=== PATIENT | female | born 1955 | race Two or more races ===

== ENCOUNTER 2018-03-20 08:00 | Outpatient (CLI) | payer MEDICARE, OTHER ==
[2018-03-20 15:59] LABS: GLUCOSE, URINE (UA) NEGATIVE (NEGATIVE); KETONES,URINE (UA) TRACE mg/dL (NEGATIVE); LEUKOCYTE ESTERASE, URINE NEGATIVE (NEGATIVE); NITRITE,URINE NEGATIVE (NEGATIVE); OCCULT BLOOD,URINE NEGATIVE (NEGATIVE); PROTEIN,URINE NEGATIVE (NEGATIVE); UROBILINOGEN,URINE 1 (NORMAL) E.U./dL (NORMAL)
[2018-03-20 16:06] LABS: BILIRUBIN,URINE NEGATIVE (NEGATIVE); CLARITY,URINE CLEAR (CLEAR); ICTOTEST,URINE NEGATIVE
== END 2018-03-20 08:01 ==
LOC: LAB.R 08:00
PROVIDERS: ATTEND Radiology Radiation Oncology
DX: C18.8 Malignant neoplasm of overlapping sites of colon (principal); C78.7 Secondary malignant neoplasm of liver and intrahepatic bile duct; R30.0 Dysuria
CPT/HCPCS: 81001; 81003; 87086

== ENCOUNTER 2018-05-26 10:31 | Inpatient (IN) | payer MEDICARE, BC ==
--- NOTE | 2018-05-26 12:12 | ED Physician Documentation ---
PD HPI NVD - Stated complaint Stated Complaint: WEAKNESS/NAUSEA/DIARHEA - Chief complaint Chief Complaint: Abd Pain - History obtained from History obtained from: Patient - History of Present Illness Timing - onset: How many days ago (3-4) Timing - duration: Days (3-4) Timing - details: Abrupt onset, Still present Associated symptoms: Abdominal pain (intermittent crampy), Loss of appetite. No: Fever, Hematemesis, Melena, Near syncope / syncope (very lightheaded), Dysuria Contributing factors: Other (chemotheraphy a week ago). No: Sick contact, Bad food, Recent antibiotics Similar symptoms before: Has not had sx before (had not had this much effect from prior chemos; this was a new one a week ago.) Recently seen: Not recently seen Review of Systems Ten Systems: 10 systems reviewed and negative Constitutional: denies: Fever, Chills, Myalgias Nose: denies: Rhinorrhea / runny nose, Congestion Throat: denies: Sore throat Cardiac: denies: Chest pain / pressure Respiratory: reports: Dyspnea. denies: Cough GI: reports: Nausea, Vomiting, Diarrhea. denies: Abdominal Pain : denies: Dysuria, Frequency Neurologic: reports: Generalized weakness, Near syncope. 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 : None HEENT: None Psych: None Musculoskeletal: None Derm: None - Past Surgical History Past Surgical History: Yes General: Bowel surgery, Liver surgery, Other Ortho: Rotator cuff repair HEENT: Tonsil/Adenoidectomy - Present Medications Home Medications: Ambulatory Orders Medication Instructions Recorded Confirmed Lidocaine/Prilocain 2.5% Cream 1 inch TOP DAILY PRN #1 tube 11/11/17 05/26/18 [Emla 2.5% Cream] Potassium Chloride [K-Dur] 20 meq PO 0800 #30 tablet 11/11/17 05/26/18 Hydrocodone/Acetaminophen 0.5 tab PO BID PRN 05/26/18 05/26/18 [Hydrocodone-Acetamin 10-325 mg] Ibuprofen 200 mg PO DAILY PRN 05/26/18 05/26/18 LORazepam [Lorazepam] 0.5 mg PO DAILY PRN 05/26/18 05/26/18 Loperamide [Imodium] 2 mg PO PRN PRN MDD 16MG 05/26/18 05/26/18 Ondansetron [Ondansetron Odt] 8 mg PO DAILY PRN 05/26/18 05/26/18 - Allergies Allergies/Adverse Reactions: Allergies Allergy/AdvReac Type Severity Reaction Status Date / Time No Known Drug Allergies Allergy Verified 05/26/18 12:15 - Social History Does the pt smoke?: No Smoking Status: Never smoker Does the pt drink ETOH?: No Does the pt have substance abuse?: No - Immunizations Immunizations are current?: No - POLST Patient has POLST: No PD ED PE NORMAL - Vitals Vital signs reviewed: Yes (hypotensive) - General General: Alert and oriented X 3, Well developed/nourished - HEENT HEENT: Pharynx benign. No: Moist mucous membranes - Neck Neck: Supple, no meningeal sign, No adenopathy - Cardiac Cardiac: RRR, No murmur - Respiratory Respiratory: Clear bilaterally - Abdomen Abdomen: Normal bowel sounds, Soft, Non tender, Non distended, No organomegaly - Female Female : Deferred - Rectal Rectal: Other (soft stool in vault, dark brown, tests lightly guiac positive. ) - Back Back: No CVA TTP - Derm Derm: Normal color, Warm and dry - Neuro Neuro: Alert and oriented X 3, No motor deficit, Normal speech Results - Vitals Vitals: Oxygen O2 Source Room air - Labs Labs: Laboratory Tests 05/26/18 05/26/18 05/26/18 14:20 14:20 15:25 WBC 0.9 L* RBC 2.40 L Hgb 7.0 L* Hct 21.3 L MCV 89.0 MCH 29.2 MCHC 32.8 RDW 19.7 H Plt Count 25 L* MPV 7.6 L Neut # (Auto) Not Reportable Lymph # (Auto) Not Reportable [place] # (Auto) Not Reportable Eos # (Auto) Not Reportable Baso # (Auto) Not Reportable Absolute Nucleated RBC Not Reportable Total Counted 100 Band Neuts % (Manual) 22 H Abnorm Lymph % (Manual) 3 Metamyelocytes % 4 H Myelocytes % 1 H Nucleated RBC % Not Reportable Neutrophils # (Manual) 0.5 L* Lymphocytes # (Manual) 0.2 L Monocytes # (Manual) 0.1 Eosinophils # (Manual) 0.0 Basophils # (Manual) 0.0 Differential Comment MANUAL DIFFERENTIAL WBC Morphology 1+ TOXIC GRANULATION Platelet Estimate DECREASED (<130,000) Platelet Morphology NORMAL APPEARANCE RBC Morph Micro Appear 1+ MICROCYTOSIS Sodium 137 Potassium 3.6 Chloride 107 Carbon Dioxide 23 Anion Gap 7.0 BUN 22 H Creatinine 0.8 Estimated GFR (MDRD) 72 L Glucose 102 H Calcium 8.5 Magnesium 1.8 Total Bilirubin 1.8 H AST 52 H ALT 15 Alkaline Phosphatase 142 H Total Protein 5.6 L Albumin 2.6 L Globulin 3.0 Albumin/Globulin Ratio 0.9 L Lipase 21 L Blood Type O POSITIVE Antibody Screen NEGATIVE Crossmatch IS Only See Detail 05/26/18 15:25 WBC RBC Hgb Hct MCV MCH MCHC RDW Plt Count MPV Neut # (Auto) Lymph # (Auto) [place] # (Auto) Eos # (Auto) Baso # (Auto) Absolute Nucleated RBC Total Counted Band Neuts % (Manual) Abnorm Lymph % (Manual) Metamyelocytes % Myelocytes % Nucleated RBC % Neutrophils # (Manual) Lymphocytes # (Manual) Monocytes # (Manual) Eosinophils # (Manual) Basophils # (Manual) Differential Comment WBC Morphology Platelet Estimate Platelet Morphology RBC Morph Micro Appear Sodium Potassium Chloride Carbon Dioxide Anion Gap BUN Creatinine Estimated GFR (MDRD) Glucose Calcium Magnesium Total Bilirubin AST ALT Alkaline Phosphatase Total Protein Albumin Globulin Albumin/Globulin Ratio Lipase Blood Type Cancelled Antibody Screen Cancelled Crossmatch IS Only See Detail PD MEDICAL DECISION MAKING - ED course Complexity details: reviewed results, re-evaluated patient (feeling improved with IV fluids, but still nauseated. Has low Hgb and will need transfusion, lc with ongoing bloody diarrhea and marrow suppression from chemo. Still hypotensive. ), considered differential (She has general weakness. This persists even despite IV fluids. Her blood pressure still mildly hypotensive. She is guaiac positive on rectal exam with the diarrhea. Presume this is just hemorrhagic colitis from the chemotherapy. We will obtain stool for culture and C. difficile. She is anemic enough to need transfusion. I think she is still ill enough to require ongoing care and I talked with the hospitalist regarding hospitalization.), d/w patient Departure - Departure Disposition: [facility] DC/Xfer Clinical Impression: Nausea vomiting and diarrhea, Pancytopenia due to chemotherapy, Dehydration, Bloody diarrhea Hypotension Qualifiers: Hypotension type: hypotension due to hypovolemia Qualified Code(s): I95.89 - Other hypotension Anemia Qualifiers: Anemia type: unspecified type Qualified Code(s): D64.9 - Anemia, unspecified Condition: Stable Record reviewed to determine appropriate education?: Yes Discharge Date/Time: 05/26/18 18:15
[2018-05-26] MEDS ORDERED: SODIUM CHLORIDE 0.9% 1,000 ML IV ONE ×2 (12:31→12:32)
[2018-05-26] MEDS ORDERED: DEXAMETHASONE 10 MG/ML VIAL PO STA (12:32)
[2018-05-26] MEDS ORDERED: metroNIDAZOLE 500 MG/100 ML 500 MG/100 ML BAG IV ONE (12:32)
[2018-05-26] MEDS ORDERED: ONDANSETRON 4 MG/2 ML VIAL IVP STA (12:32)
[2018-05-26] MEDS ORDERED: DIPHENOX/ATROPINE 2.5/0.025 MG TABLET PO STA (12:32)
[2018-05-26 14:33] LABS: BASOPHILS % (AUTO) 0.2 %; EOSINOPHILS % (AUTO) 2.4 %; LYMPHOCYTES % (AUTO) 16.7 %; MEAN CORPUSCULAR HEMOGLOBIN 29.2 pg (27.0-31.0); MEAN CORPUSCULAR HGB CONC 32.8 g/dL (32.0-36.0); MEAN PLATELET VOLUME 7.6 fL (7.9-10.8); MONOCYTES % (AUTO) 17.2 %; NEUTROPHILS % (AUTO) 63.5 %; RED CELL DISTRIBUTION WIDTH 19.7 % (12.0-15.0)
[2018-05-26 14:38] LABS: WHITE BLOOD COUNT 0.9 x10^3/uL (4.8-10.8)
[2018-05-26 14:39] LABS: PLT - PLATELET COUNT 25 10^3/uL (130-450)
[2018-05-26 14:42] LABS: ALBUMIN 2.6 g/dL (3.2-5.5); ALBUMIN/GLOBULIN RATIO 0.9 (1.0-2.2); BILIRUBIN,TOTAL 1.8 mg/dL (0.2-1.0); CALCIUM 8.5 mg/dL (8.5-10.3); CREATININE 0.8 mg/dL (0.4-1.0); MAGNESIUM 1.8 mg/dL (1.7-2.8); TOTAL PROTEIN 5.6 g/dL (6.7-8.2)
[2018-05-26 14:58] LABS: NEUTROPHILS % (MANUAL) 38 %
[2018-05-26 14:59] LABS: ABNORMAL LYMPHS % (MANUAL) 3 %; BAND NEUTROPHILS % (MANUAL) 22 %; BASOPHILS % (MANUAL) 1 %; LYMPHOCYTES # (MANUAL) 0.2 10^3/uL (1.5-3.5); LYMPHOCYTES % (MANUAL) 23 %; METAMYELOCYTES % (MANUAL) 4 %; MONOCYTES # (MANUAL) 0.1 10^3/uL (0.0-1.0); MYELOCYTES % (MANUAL) 1 %; NEUTROPHILS # (MANUAL) 0.5 10^3/uL (1.5-6.6)
[2018-05-26 15:01] LABS: DIFFERENTIAL COMMENT MANUAL DIFFERENTIAL; PLATELET ESTIMATE, MANUAL DECREASED (<130,000) (NORMAL); PLATELET MORPHOLOGY NORMAL APPEARANCE (NORMAL)
[2018-05-26] MEDS ORDERED: fentaNYL 100 MCG/2 ML VIAL IVP STA (15:15)
[2018-05-26] MEDS ORDERED: TEMAZEPAM 15 MG CAPSULE PO PRN (17:08)
--- NOTE | 2018-05-26 17:12 | HISTORY & PHYSICAL EXAMINATION ---
Chief Complaint - Chief Complaint Chief Complaint: N/V/D History of Present Illness - Admitted From Admitted From:: ED - History Obtained From Records Reviewed: yes History obtained from: chart review, patient Exam Limitations: none - History of Present Illness HPI Comment/Other: Darcy Mccall is a 62-year old female with a past medical history of hypertension, colorectal cancer since 09/2015, diverting colostomy for obstruction, ileostomy take down in 03/2016, embolization of right hepatic lobe, failed liver resection due to progression of disease, and iron deficiency anemia. The patient presented to the ED with a primary complaint of nausea, vomiting and diarrhea that started last May 23. She states that she has been getting bloody noses, has been having blurred vision and is currently being seen by our [facility] [place]ology clinic with her last appointment on 05/19/[address] Gupta. Today the triggering event that she called EMS for was that she could no longer bear weight on her legs due to profound weakness. Labs show pancytopenia with a WBC count of 0.9 and an ANC of 0.5. Her H/H was very low at 7/21.3 and a low platelet count of 25. On my exam she is conversational and set on going home by "noon tomorrow". She complains of loss of appetite, chills, nose bleeds, weakness, dizziness, shortness of breath with ambulation, sleeping all of the time, an inability to ambulate, and incontinence. She denies chest pain, chest pressure, rashes, hallucinations, confusion, falls, syncope, a productive cough, fevers, or night sweats. She states that she was previously a DNR, but after speaking with her , they decided that a FULL code is their wish at this time. Her Kristine was not present for this exam, but a family friend (female) named Uma giraldo, who agreed with a FULL code status as she was present for the conversation between the patient and her . She will be admitted for PRBCs and evaluation of her symptoms. 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 : reports: Incontinence, Nocturia, Frequency HEENT: reports: Chronic vision loss, Chronic sinusitis, Chronic hearing loss Psych: reports: Depression, Anxiety Musculoskeletal: reports: Osteoarthritis, Osteoporosis Derm: reports: None MRSA Hx?: No - Past Surgical History General: reports: Bowel surgery, Gastric surgery, Liver surgery, EGD, Other (ileostomy, take down, now pelvic mass) Ortho: reports: Rotator cuff repair HEENT: reports: Tonsil/Adenoidectomy - Family & Social History Family History: Mother: , Cancer, Father: , Brother: , Cancer Family History Comment/Other: The patient's father of natural causes, her mother of cancer of unknown type. Her brother of cancer. Living arrangement: At home Living Situation: With spouse/s.o. Social History Notes: The patient worked for the [employer], but has been retired for several years. She lives independently with her , Kristine and has no children. She denies the use of tobacco, alcohol or illicit drugs. She wishes to be a FULL code. - Substance History Use: Uses substance without health or social issues: NONE Abuse: Recurrent use of substance despite neg consequences: NONE Dependence: Experiences withdrawal or developed tolerances: NONE - POLST Patient has POLST: No POLST Status: Full Code Meds/Allgy - Home Medications Home Medications: Ambulatory Orders Medication Instructions Recorded Confirmed Lidocaine/Prilocain 2.5% Cream 1 inch TOP DAILY PRN #1 tube 11/11/17 05/26/18 [Emla 2.5% Cream] Potassium Chloride [K-Dur] 20 meq PO 0800 #30 tablet 11/11/17 05/26/18 Hydrocodone/Acetaminophen 0.5 tab PO BID PRN 05/26/18 05/26/18 [Hydrocodone-Acetamin 10-325 mg] Ibuprofen 200 mg PO DAILY PRN 05/26/18 05/26/18 LORazepam [Lorazepam] 0.5 mg PO DAILY PRN 05/26/18 05/26/18 Loperamide [Imodium] 2 mg PO PRN PRN MDD 16MG 05/26/18 05/26/18 Ondansetron [Ondansetron Odt] 8 mg PO DAILY PRN 05/26/18 05/26/18 - Allergies Allergies/Adverse Reactions: Allergies Allergy/AdvReac Type Severity Reaction Status Date / Time No Known Drug Allergies Allergy Verified 05/26/18 12:15 Review of Systems - Constitutional Constitutional: reports: Fatigue, Chills, Weakness, Poor appetite - Eyes Eyes: reports: Blurred vision - Ears, Nose & Throat Ears, Nose & Throat: reports: Nosebleeds, Postnasal drainage - Cardiovascular Cariovascular: reports: Lightheadedness, Exertional dyspnea, Decr. exercise tolerance, Orthopnea - Respiratory Respiratory: reports: Orthopnea, SOB at rest, SOB with exertion - Gastrointestinal Gastrointestinal: reports: Diarrhea, Rectal bleeding (due to hemorroids), Nausea, Vomiting, Reflux/heartburn, Poor appetite - Genitourinary Genitourinary: reports: Dysuria, Frequency - Musculoskeletal Musculoskeletal: reports: Muscle aches, Muscle weakness - Integumentary Integumentary: reports: Rash (to face and genitals), Dryness - Neurological Neurological: reports: General weakness, Dizziness, Memory problems, Pre- existing deficit, Abnormal gait, Incoordination - Psychiatric Psychiatric: reports: Depression, Anxiety - All Other Systems All Other Systems: reports: Reviewed and negative Prior Level of Functionality: Ambulatory, but for the past few days has been profoundly weak. Exam - Vital Signs Reviewed Vital Signs: Yes Vital Signs: Vital Signs x48h Temp Pulse Resp BP Pulse Ox 05/26/18 17:09 76 16 92/52 L 05/26/18 15:54 36.8 C 78 18 89/52 L 100 05/26/18 12:10 37.1 C 78 18 99/46 L 99 05/26/18 11:08 36.5 C 87 16 94/63 100 - Physical Exam General Appearance: positive: Alert, Mild distress, Anxious Eyes Bilateral: positive: PERRL ENT: positive: Pharynx nml, Dry mucous membranes Neck: positive: Thyroid nml, No JVD, Trachea midline Respiratory: positive: Chest non-tender, No respiratory distress, Breath sounds nml Cardiovascular: positive: Regular rate & rhythm, No gallop, Systolic murmur Abdomen: positive: Tenderness, Guarding, Abnml bowel sounds Back: positive: Nml inspection Skin: positive: No rash, Warm, Dry, Other (bronze, pale) Extremities: positive: Non-tender, Full ROM, Nml appearance, No pedal edema Neurologic/Psychiatric: positive: Oriented x3, CN's nml (2-12), Motor nml, Sensation nml, Weakness, Slurred/abnml speech (sluggish speech), Depressed mood/affect Reflexes: Bicep (R): 2+, Bicep (L): 2+ Sepsis Event Note (H) - Evaluation Current Stage of Sepsis: Ruled out - Sepsis Criteria Sepsis Criteria: Suspected or Documented, WBC count greater than 12,000 or less than 4000, SBP less than 90 mmHg, Hematologic: platelets < 100,000; INR > 1.5, or a PTT>60 seconds Conclusion/Plan - Problem List (1) Hypotension Conclusion/Plan: The patient states that since Saturday05/23/18, she has not been able to consume food, has been thirsty, has been nauseated, vomiting, and diarrhea. She is found to be very hypotensive on admission with B/Ps at 89/52. She got 2Ls of IV fluids in the ED via her left upper chest port and only improved to 92/52. She remains with intermittent blurred vision, profound fatigue and is also anemic with an H/H of 7/21.3. She is currently under the care of oncology [facility] clinic. Plan: IV fluids, monitor vital signs. Qualifiers: Hypotension type: hypotension due to hypovolemia Qualified Code(s): I95.89 - Other hypotension; E86.1 - Hypovolemia (2) Nausea vomiting and diarrhea Conclusion/Plan: The patient states that she is only thirsty lately and has had uncontrolled N/V/D since last Saturday- 05/23/18. Her friend, Uma is in the room and confirms this. This has consequently caused her to be very weak and she has not been able to take her regular medications. She describes her diarrhea as uncontrolled and frequent. She denies recent antibiotics. Plan: Start SQ octreotide, monitor for worsening, treat with IV fluids. Await C-diff results. (3) Pancytopenia due to chemotherapy Conclusion/Plan: The patient had her most recent chemo treatment in 03/2018 which was an external beam XRT to the pelvic mass for palliative purposes/pain. She is now anemic, with 2 units of PRBC that need to irradiated that are pending. Plan: monitor labs, monitor for bleeding, treat symptoms, IV fluids. Replace platelets if they reach less then 10. (4) Epistaxis, recurrent Conclusion/Plan: The patient states that this has been happening at least daily for the past few weeks. Her platelet level is 25. She is not currently having this on my exam. Plan: Afrin spray for acute bleeding, monitor. (5) Mass of colon Conclusion/Plan: The patient has been diagnosed with stage 4 colon CA since 2016 and had a diverting ostomy, and a take down. On exam, she has a pelvic mass that is centered near her naval. She has chronic abdominal tenderness. She has liver mets. She last saw Dr. Gupta oncolgy on 05/19/18. Plan: Continue to treat acute diagnoses. Alert [facility] clinic of her admission. (6) Metastasis to liver Conclusion/Plan: The patient does not have juandice, but appears bronze, pale in color. She had an external beam XRT for her pelvic mass in 03/2018. She is profoundly malnourished. Plan: Continue to monitor. (7) Anorexia Conclusion/Plan: The patient has not tolerated food and very little water since Saturday05/23/18. This is likely due to her N/V/D that is considered uncontrolled. Plan: Nutritional consult, treat symptoms. Ensure good PO intake prior to discharge. (8) Protein-calorie malnutrition, severe Conclusion/Plan: The patient has evidence of very poor nutrition with having an albumin of 2.6 and a low total protein. She states that she suffers from a poor baseline appetite and now has this illness. She admits to recent weight loss, and has a trend of gradual decline with poor endurance. As per chart review the patient weight 59.5kg in February of 2018 and is now down to 53.9 kg. Plan: Continue to treat symptoms, nutritional consult. Regular diet. (9) Chronic anal fissure Conclusion/Plan: In the ED the patient tested + guiac, which may have been from her chronic anal fissures/hemorrhoids. She has been seen by general surgery for this. She continues to have diarrhea. Plan: Continue to monitor. Await stool testing, 2 units of blood this evening. Continue SQ octreotide for symptom control. - Lab Results Lab results reviewed: Yes Fish Bones: 05/26/18 14:20 05/26/18 14:20 Core Measures - Anticipated LOS I expect patient to be DC'd or transferred within 96 hours.: Yes - DVT/VTE - Prophylaxis VTE/DVT Device ordered at admit?: Yes VTE/DVT Prophylaxis med ordered at admit?: No Not Ordered - Medical Reason: Contraindicated - Stroke - Rehab Assessment Rehab services assessment to be ordered?: Yes - AMI - Statin at Admit Aspirin Prescribed on Admit: No Not Ordered - Medical Reason: Contraindicated
[2018-05-26] MEDS ORDERED: HYDROcod/ACETAM 10 MG/325 MG TABLET PO PRN (19:37)
[2018-05-26] MEDS ORDERED: LORazepam 0.5 MG TABLET PO PRN (19:37)
[2018-05-26] MEDS ORDERED: LIDOCAINE/PRILOCAINE 2.5% CREAM 5 GM TUBE TOP PRN (19:37)
[2018-05-26] MEDS: LOPERAMIDE 2 MG CAPSULE PO PRN (19:59)
[2018-05-26] MEDS ORDERED: NS W/20 MEQ KCL 1,000 ML IV SCH (20:00)
[2018-05-26] MEDS: OCTREOTIDE 100 MCG/ML VIAL SUBQ SCH (22:01)
[2018-05-26] MEDS: NS W/20 MEQ KCL 1,000 ML IV SCH (22:51)
[2018-05-26] MEDS: SODIUM CHLORIDE FLUSH 0.9% 10 ML SYRINGE IVP SCH (23:49)
[2018-05-27] MEDS: MORPHINE 2 MG/ML CARPUJECT IVP PRN ×2 (01:20→19:37)
[2018-05-27] MEDS: LOPERAMIDE 2 MG CAPSULE PO PRN ×5 (01:20→22:49)
[2018-05-27] MEDS: SODIUM CHLORIDE FLUSH 0.9% 10 ML SYRINGE IVP SCH ×3 (01:21→23:48)
[2018-05-27] MEDS: IBUPROFEN 400 MG TABLET PO PRN ×2 (01:31→20:49)
[2018-05-27] MEDS: OCTREOTIDE 100 MCG/ML VIAL SUBQ SCH ×3 (05:32→22:11)
[2018-05-27 05:53] LABS: BASOPHILS % (AUTO) 0.2 %; EOSINOPHILS % (AUTO) 0.2 %; HGB - HEMOGLOBIN 7.4 g/dL (12.0-16.0); LYMPHOCYTES % (AUTO) 17.5 %; MEAN CORPUSCULAR HEMOGLOBIN 29.6 pg (27.0-31.0); MEAN CORPUSCULAR HGB CONC 31.9 g/dL (32.0-36.0); MEAN CORPUSCULAR VOLUME 92.7 fL (81.0-99.0); MEAN PLATELET VOLUME 8.2 fL (7.9-10.8); MONOCYTES % (AUTO) 14.5 %; NEUTROPHILS % (AUTO) 67.6 %; RED CELL DISTRIBUTION WIDTH 18.7 % (12.0-15.0)
[2018-05-27 06:00] LABS: WHITE BLOOD COUNT 0.5 x10^3/uL (4.8-10.8)
[2018-05-27 06:01] LABS: PLT - PLATELET COUNT 19 10^3/uL (130-450)
[2018-05-27 06:04] LABS: ALBUMIN 2.2 g/dL (3.2-5.5); ALBUMIN/GLOBULIN RATIO 0.8 (1.0-2.2); BILIRUBIN,TOTAL 1.9 mg/dL (0.2-1.0); CALCIUM 8.1 mg/dL (8.5-10.3); CREATININE 0.7 mg/dL (0.4-1.0); TOTAL PROTEIN 4.9 g/dL (6.7-8.2)
[2018-05-27 06:19] LABS: ABNORMAL LYMPHS % (MANUAL) 0 %
[2018-05-27] MEDS: PANTOPRAZOLE 40 MG VIAL IVP SCH ×2 (06:24→16:22)
[2018-05-27 06:31] LABS: NEUTROPHILS % (MANUAL) 52 %
[2018-05-27 06:33] LABS: BAND NEUTROPHILS % (MANUAL) 19 %; LYMPHOCYTES # (MANUAL) 0.1 10^3/uL (1.5-3.5); LYMPHOCYTES % (MANUAL) 21 %; NEUTROPHILS # (MANUAL) 0.4 10^3/uL (1.5-6.6)
[2018-05-27 06:34] LABS: PLATELET ESTIMATE, MANUAL DECREASED (<130,000) (NORMAL)
[2018-05-27] MEDS: NS W/20 MEQ KCL 1,000 ML IV SCH (09:02)
[2018-05-27] MEDS ORDERED: SODIUM CHLORIDE 0.9% 500 ML IV ONE (09:50)
[2018-05-27] MEDS: POLYETHYLENE GLYCOL 3350 17 GM PACKET PO SCH (09:54)
[2018-05-27] MEDS ORDERED: FILGRASTIM-SNDZ 300 MCG/0.5 ML SYRINGE SUBQ ONE (10:24)
--- NOTE | 2018-05-27 10:35 | PROVIDER PROGRESS NOTE ---
Subjective - Prog Note Date Prog Note Date: 05/27/18 - Subjective Pt reports feeling: Improved Subjective: pt reports she has been loss of her appetite since last Saturday, today she feels she had some appetite and she begin to eat her breakfast. She denies fever, chill, nose bleeding or other bleeding. I discussed with Lacey RUST, pt's oncologist provider, at [facility] for pt's care plan. Lacey recommends Zarxio for pt's neutropenia, blood transfusion of lower HGB, and closely monitor pt until pt has bleed or Plt continue to drop to 10,000, then transfusion of large bag of Plt. I discussed with pt's and pt for pt's care plan. They want continue to have full code, do not think palliative or hospice care now but will consider if the time comes. Current Medications - Current Medications Current Medications: Active Medications Acetaminophen (Tylenol) 650 mg PO Q4HR PRN PRN Reason: Pain 1 to 4 Hydrocodone Bitart/Acetaminophen ([place] 10 Mg/325 Mg) 0.5 tab PO BID PRN PRN Reason: PAIN Filgrastim (Zarxio) 300 mcg SUBQ ONCE ONE Stop: 05/27/18 10:25 Potassium Chloride/Sodium Chloride (Normal Saline 0.9% W/20 Meq Kcl) 1,000 mls @ 100 mls/hr IV .Q10H [facility] Last Admin: 05/27/18 09:02 Dose: 100 mls/hr Ibuprofen (Motrin) 200 mg PO DAILY PRN PRN Reason: PAIN Last Admin: 05/27/18 01:31 Dose: 200 mg Lidocaine/Prilocaine (Emla 2.5% Cream) 1 applic TOP DAILY PRN PRN Reason: Port Access Loperamide HCl (Imodium) 2 mg PO PRN PRN PRN Reason: LOOSE STOOL Last Admin: 05/27/18 01:20 Dose: 2 mg Lorazepam (Ativan) 0.5 mg PO DAILY PRN PRN Reason: Nausea / Vomiting Morphine Sulfate (Morphine (Carpuject)) 2 mg IVP Q2HR PRN PRN Reason: PAIN Octreotide Acetate (Sandostatin) 50 mcg SUBQ TID [facility] Last Admin: 05/27/18 05:32 Dose: 50 mcg Ondansetron HCl (Zofran Inj) 4 mg IVP Q6HR PRN PRN Reason: Nausea / Vomiting Ondansetron HCl (Zofran Odt) 8 mg PO DAILY PRN PRN Reason: Nausea / Vomiting Pantoprazole Sodium (Protonix) 40 mg IVP BIDAC [facility] Last Admin: 05/27/18 06:24 Dose: 40 mg Polyethylene Glycol (Miralax) 17 gm PO DAILY [facility] Last Admin: 05/27/18 09:54 Dose: Not Given Sodium Chloride (Normal Saline Flush 0.9%) 10 ml IVP PRN PRN PRN Reason: NEEDED PER PROVIDER ORDERS Sodium Chloride (Normal Saline Flush 0.9%) 10 ml IVP 0100,0900,1700 [facility] Last Admin: 05/27/18 01:21 Dose: 10 ml Temazepam (Restoril) 15 mg PO QPM PRN PRN Reason: Insomnia Hydrocodone/Acetaminophen [Hydrocodone-Acetamin 10-325 mg] 0.5 tab PO BID PRN 05/26/18 Ibuprofen 200 mg PO DAILY PRN 05/26/18 LORazepam [Lorazepam] 0.5 mg PO DAILY PRN 05/26/18 Loperamide [Imodium] 2 mg PO PRN PRN MDD 16MG 05/26/18 Ondansetron [Ondansetron Odt] 8 mg PO DAILY PRN 05/26/18 Objective - Vital Signs/Intake & Output Reviewed Vital Signs: Yes Vital Signs: Vital Signs x48h Temp Pulse Resp BP Pulse Ox 05/27/18 07:55 36.4 C L 69 16 94/53 L 97 05/27/18 05:00 36.4 C L 66 16 86/45 L 96 Intake & Output: Intake & Output 05/24/18 05/25/18 05/26/18 05/27/18 23:59 23:59 23:59 23:59 Intake Total 2450 1720 Output Total 650 3 Balance 1800 1717 - Objective General Appearance: positive: No acute distress, Alert. negative: Lethargic Eyes Bilateral: positive: Normal inspection, PERRL, No lid inflammation, Conjunctivae nml ENT: positive: ENT inspection nml, Pharynx nml, No signs of dehydration. negative: Purulent nasal drainage, Pharyngeal erythema, Oral lesions Neck: positive: Nml inspection, Thyroid nml, No JVD, Trachea midline. negative: Thyromegaly, Lymphadenopathy (R), Lymphadenopathy (L), Stiff neck, Swelling/bruising, Tracheal deviation Respiratory: positive: Chest non-tender, No respiratory distress, Breath sounds nml. negative: Wheezes, Rales, Rhonchi Cardiovascular: positive: Regular rate & rhythm, No murmur, No gallop. negative: Irregularly irregular, Extrasystoles, Tachycardia, Bradycardia, JVD present, Systolic murmur, Diastolic murmur Peripheral Pulses: 2+ Radial (R), 2+ Radial (L), 2+ Dorsalis pedis (R), 2+ Dorsalis pedis (L) Abdomen: positive: Non-tender, No organomegaly, No distention. negative: Tenderness, Guarding, Rebound Back: positive: Nml inspection. negative: CVA tenderness (R), CVA tenderness (L) Skin: positive: Color nml, No rash, Warm, Dry. negative: Cyanosis, Diaphoresis, Pallor Extremities: positive: Non-tender, Full ROM, Nml appearance. negative: Calf tenderness, Joint swelling, Susie's sign/cords Neurologic/Psychiatric: positive: Oriented x3, Sensation nml. negative: Weakness, Sensory loss, Facial droop, Slurred/abnml speech, Depressed mood/affect - Lab Results Fish Bones: 05/27/18 05:15 05/27/18 05:15 Other Labs: Lab Results x24hrs 05/27/18 05/27/18 05/26/18 Range/Units 05:15 05:15 15:25 WBC 0.5 L* (4.8-10.8) x10^3/uL RBC 2.50 L (4.20-5.40) 10^6/uL Hgb 7.4 L (12.0-16.0) g/dL Hct 23.2 L (37.0-47.0) % MCV 92.7 (81.0-99.0) fL MCH 29.6 (27.0-31.0) pg MCHC 31.9 L (32.0-36.0) g/dL RDW 18.7 H (12.0-15.0) % Plt Count 19 L* (130-450) 10^3/uL MPV 8.2 (7.9-10.8) fL Neut # (Auto) Not Reportable Lymph # (Auto) Not Reportable [place] # (Auto) Not Reportable Eos # (Auto) Not Reportable Baso # (Auto) Not Reportable Absolute Nucleated RBC Not Reportable Total Counted 100 Band Neuts % (Manual) 19 H (0 - 10) % Abnorm Lymph % (Manual) 0 % Metamyelocytes % ( - 0) % Myelocytes % ( - 0) % Nucleated RBC % Not Reportable Neutrophils # (Manual) 0.4 L* (1.5-6.6) 10^3/uL Lymphocytes # (Manual) 0.1 L (1.5-3.5) 10^3/uL Monocytes # (Manual) 0.0 (0.0-1.0) 10^3/uL Eosinophils # (Manual) 0.0 (0-0.7) 10^3/uL Basophils # (Manual) 0.0 (0-0.1) 10^3/uL Differential Comment WBC Morphology (NORMAL) Platelet Estimate DECREASED (<130,000) (NORMAL) Platelet Morphology (NORMAL) RBC Morph Micro Appear 1+ HYPOCHROMASIA (NORMAL) Sodium 139 (135-145) mmol/L Potassium 3.9 (3.5-5.0) mmol/L Chloride 112 H (101-111) mmol/L Carbon Dioxide 21 (21-32) mmol/L Anion Gap 6.0 (6-13) BUN 20 (6-20) mg/dL Creatinine 0.7 (0.4-1.0) mg/dL Estimated GFR (MDRD) 84 L (>89) Glucose 125 H (70-100) mg/dL Calcium 8.1 L (8.5-10.3) mg/dL Magnesium (1.7-2.8) mg/dL Total Bilirubin 1.9 H (0.2-1.0) mg/dL AST 48 H (10-42) IU/L ALT 18 (10-60) IU/L Alkaline Phosphatase 107 (42-121) IU/L Total Protein 4.9 L (6.7-8.2) g/dL Albumin 2.2 L (3.2-5.5) g/dL Globulin 2.7 (2.1-4.2) g/dL Albumin/Globulin Ratio 0.8 L (1.0-2.2) Lipase (22-51) U/L Blood Type Cancelled Antibody Screen Cancelled Crossmatch IS Only See Detail 05/26/18 05/26/18 05/26/18 Range/Units 15:25 14:20 14:20 WBC 0.9 L* (4.8-10.8) x10^3/uL RBC 2.40 L (4.20-5.40) 10^6/uL Hgb 7.0 L* (12.0-16.0) g/dL Hct 21.3 L (37.0-47.0) % MCV 89.0 (81.0-99.0) fL MCH 29.2 (27.0-31.0) pg MCHC 32.8 (32.0-36.0) g/dL RDW 19.7 H (12.0-15.0) % Plt Count 25 L* (130-450) 10^3/uL MPV 7.6 L (7.9-10.8) fL Neut # (Auto) Not Reportable Lymph # (Auto) Not Reportable [place] # (Auto) Not Reportable Eos # (Auto) Not Reportable Baso # (Auto) Not Reportable Absolute Nucleated RBC Not Reportable Total Counted 100 Band Neuts % (Manual) 22 H (0 - 10) % Abnorm Lymph % (Manual) 3 % Metamyelocytes % 4 H ( - 0) % Myelocytes % 1 H ( - 0) % Nucleated RBC % Not Reportable Neutrophils # (Manual) 0.5 L* (1.5-6.6) 10^3/uL Lymphocytes # (Manual) 0.2 L (1.5-3.5) 10^3/uL Monocytes # (Manual) 0.1 (0.0-1.0) 10^3/uL Eosinophils # (Manual) 0.0 (0-0.7) 10^3/uL Basophils # (Manual) 0.0 (0-0.1) 10^3/uL Differential Comment MANUAL DIFFERENTIAL WBC Morphology 1+ TOXIC GRANULATION (NORMAL) Platelet Estimate DECREASED (<130,000) (NORMAL) Platelet Morphology NORMAL APPEARANCE (NORMAL) RBC Morph Micro Appear 1+ MICROCYTOSIS (NORMAL) Sodium 137 (135-145) mmol/L Potassium 3.6 (3.5-5.0) mmol/L Chloride 107 (101-111) mmol/L Carbon Dioxide 23 (21-32) mmol/L Anion Gap 7.0 (6-13) BUN 22 H (6-20) mg/dL Creatinine 0.8 (0.4-1.0) mg/dL Estimated GFR (MDRD) 72 L (>89) Glucose 102 H (70-100) mg/dL Calcium 8.5 (8.5-10.3) mg/dL Magnesium 1.8 (1.7-2.8) mg/dL Total Bilirubin 1.8 H (0.2-1.0) mg/dL AST 52 H (10-42) IU/L ALT 15 (10-60) IU/L Alkaline Phosphatase 142 H (42-121) IU/L Total Protein 5.6 L (6.7-8.2) g/dL Albumin 2.6 L (3.2-5.5) g/dL Globulin 3.0 (2.1-4.2) g/dL Albumin/Globulin Ratio 0.9 L (1.0-2.2) Lipase 21 L (22-51) U/L Blood Type O POSITIVE Antibody Screen NEGATIVE Crossmatch IS Only See Detail ABX Reporting Has patient been on IV antibiotics over the past 48 hours?: No Sepsis Event Note (H) - Evaluation Current Stage of Sepsis: Ruled out - Sepsis Criteria Sepsis Criteria: Suspected or Documented, WBC count greater than 12,000 or le ss than 4000, SBP less than 90 mmHg, Hematologic: platelets < 100,000; INR > 1.5, or a PTT>60 seconds Assessment/Plan - Problem List (1) Hypotension Impression: pt's BP is 94/53 today. pt has been chronic low side of BP on and off. pt is eating her breakfast, and state she has appetite today. it seems pt asymptomatic. continue vital and tele monitor continue to finish blood transfusion (2) Nausea vomiting and diarrhea resolved. no more N/V. C-diff result is negative. it seems from the side effect of recent Chemotherapy (3) Pancytopenia due to chemotherapy chronic pancytopenia due to chemotherapy. discussed with Lacey, per Lacey's recommends, order Zarxio for neuropenia continue to finish 2 units of PRBC. closely monitor if pt has bleeding, and discussed with pt for her care plan, pt state she will report to nurse if she has any bleeding. monitor labs, monitor for bleeding, treat symptoms, IV fluids. Replace platelets if they reach less then 10. (4) Epistaxis, recurrent Conclusion/Plan: pt report she did not have epistaxis as far since she was admitted. Afrin spray for acute bleeding PRN, closely monitor. 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 Regular diet. (9) Chronic anal fissure stable, pt did not have complaint today. C.diff test is negative. Continue finish blood transfusion. Qualifiers: Hypotension type: hypotension due to hypovolemia Qualified Code(s): I95.89 - Other hypotension; E86.1 - Hypovolemia
[2018-05-27] MEDS ORDERED: OXYMETAZOLINE NASAL SPRAY NAS PRN (10:54)
[2018-05-27 13:50] LABS: BASOPHILS % (AUTO) 0.1 %; EOSINOPHILS % (AUTO) 0.3 %; HGB - HEMOGLOBIN 10.5 g/dL (12.0-16.0); LYMPHOCYTES % (AUTO) 10.4 %; MEAN CORPUSCULAR HEMOGLOBIN 30.4 pg (27.0-31.0); MEAN CORPUSCULAR HGB CONC 33.2 g/dL (32.0-36.0); MEAN CORPUSCULAR VOLUME 91.5 fL (81.0-99.0); MEAN PLATELET VOLUME 8.1 fL (7.9-10.8); MONOCYTES % (AUTO) 12.6 %; NEUTROPHILS % (AUTO) 76.6 %; RED BLOOD COUNT 3.46 10^6/uL (4.20-5.40); RED CELL DISTRIBUTION WIDTH 18.6 % (12.0-15.0)
[2018-05-27 13:57] LABS: PLT - PLATELET COUNT 31 10^3/uL (130-450); WHITE BLOOD COUNT 1.3 x10^3/uL (4.8-10.8)
[2018-05-27 13:58] LABS: ABNORMAL LYMPHS % (MANUAL) 0 %
[2018-05-27 14:07] LABS: BAND NEUTROPHILS % (MANUAL) 11 %; LYMPHOCYTES # (MANUAL) 0.2 10^3/uL (1.5-3.5); LYMPHOCYTES % (MANUAL) 16 %; METAMYELOCYTES % (MANUAL) 2 %; MONOCYTES # (MANUAL) 0.1 10^3/uL (0.0-1.0); NEUTROPHILS # (MANUAL) 0.9 10^3/uL (1.5-6.6); NEUTROPHILS % (MANUAL) 61 %
[2018-05-27 14:10] LABS: DIFFERENTIAL COMMENT MANUAL DIFFERENTIAL; PLATELET ESTIMATE, MANUAL DECREASED (<130,000) (NORMAL); PLATELET MORPHOLOGY NORMAL APPEARANCE (NORMAL)
[2018-05-27] MEDS ORDERED: NS W/20 MEQ KCL 1,000 ML IV SCH (15:46)
[2018-05-27] MEDS: ACETAMINOPHEN 325 MG TABLET PO PRN ×2 (18:17→22:29)
[2018-05-27] MEDS: ONDANSETRON ODT 4 MG TABLET PO PRN (18:18)
[2018-05-27] MEDS: ONDANSETRON 4 MG/2 ML VIAL IVP PRN (19:37)
[2018-05-28] MEDS: ONDANSETRON ODT 4 MG TABLET PO PRN (01:45)
[2018-05-28 05:09] LABS: BASOPHILS % (AUTO) 0.1 %; EOSINOPHILS % (AUTO) 5.4 %; HGB - HEMOGLOBIN 9.6 g/dL (12.0-16.0); LYMPHOCYTES % (AUTO) 20.8 %; MEAN CORPUSCULAR HEMOGLOBIN 29.9 pg (27.0-31.0); MEAN CORPUSCULAR HGB CONC 32.4 g/dL (32.0-36.0); MEAN CORPUSCULAR VOLUME 92.5 fL (81.0-99.0); MEAN PLATELET VOLUME 7.6 fL (7.9-10.8); MONOCYTES % (AUTO) 35.6 %; NEUTROPHILS % (AUTO) 38.1 %; RED CELL DISTRIBUTION WIDTH 18.2 % (12.0-15.0)
[2018-05-28 05:20] LABS: ALBUMIN 2.2 g/dL (3.2-5.5); ALBUMIN/GLOBULIN RATIO 0.8 (1.0-2.2); CALCIUM 8.2 mg/dL (8.5-10.3); CREATININE 0.7 mg/dL (0.4-1.0); TOTAL PROTEIN 4.8 g/dL (6.7-8.2)
[2018-05-28 06:02] LABS: PLT - PLATELET COUNT 25 10^3/uL (130-450); WHITE BLOOD COUNT 0.6 x10^3/uL (4.8-10.8)
[2018-05-28 06:03] LABS: ABNORMAL LYMPHS % (MANUAL) 0 %
[2018-05-28] MEDS: OCTREOTIDE 100 MCG/ML VIAL SUBQ SCH ×3 (06:19→21:31)
[2018-05-28] MEDS: PANTOPRAZOLE 40 MG VIAL IVP SCH ×2 (06:20→16:17)
[2018-05-28] MEDS: SODIUM CHLORIDE FLUSH 0.9% 10 ML SYRINGE IVP PRN (06:20)
[2018-05-28] MEDS: SODIUM CHLORIDE FLUSH 0.9% 10 ML SYRINGE IVP SCH ×2 (06:21→16:18)
[2018-05-28 06:33] LABS: BAND NEUTROPHILS % (MANUAL) 14 %; LYMPHOCYTES # (MANUAL) 0.2 10^3/uL (1.5-3.5); LYMPHOCYTES % (MANUAL) 32 %; MONOCYTES # (MANUAL) 0.1 10^3/uL (0.0-1.0); NEUTROPHILS # (MANUAL) 0.3 10^3/uL (1.5-6.6); NEUTROPHILS % (MANUAL) 40 %
[2018-05-28] MEDS: LOPERAMIDE 2 MG CAPSULE PO PRN (06:33)
[2018-05-28 06:34] LABS: PLATELET ESTIMATE, MANUAL DECREASED (<130,000) (NORMAL); RBC MORPHOLOGY (MULTIPLE) 1+ ANISOCYTOSIS (NORMAL)
[2018-05-28] MEDS ORDERED: FILGRASTIM-SNDZ 300 MCG/0.5 ML SYRINGE SUBQ ONE (07:55)
[2018-05-28] MEDS: IBUPROFEN 400 MG TABLET PO PRN (08:00)
[2018-05-28] MEDS: ONDANSETRON 4 MG/2 ML VIAL IVP PRN ×2 (08:02→21:30)
[2018-05-28] MEDS: POLYETHYLENE GLYCOL 3350 17 GM PACKET PO SCH (10:32)
--- NOTE | 2018-05-28 14:36 | PROVIDER PROGRESS NOTE ---
Subjective - Prog Note Date Prog Note Date: 05/28/18 - Subjective Pt reports feeling: No change Subjective: pt report she still has a poor appetite and eat very little. Discuss in detail with pt and her about her poor medical progress in the hospital, and answer all their questions. they will considerate her medical condition seriously, hopefully make some decision for pt's future care plan. pt denies fever, chill, cough, chest pain. Current Medications - Current Medications Current Medications: Active Medications Acetaminophen (Tylenol) 650 mg PO Q4HR PRN PRN Reason: Pain 1 to 4 Last Admin: 05/27/18 22:29 Dose: 650 mg Hydrocodone Bitart/Acetaminophen ([place] 10 Mg/325 Mg) 0.5 tab PO BID PRN PRN Reason: PAIN Last Admin: 05/28/18 13:13 Dose: 0.5 tab Ibuprofen (Motrin) 200 mg PO DAILY PRN PRN Reason: PAIN Last Admin: 05/28/18 08:00 Dose: 200 mg Lidocaine/Prilocaine (Emla 2.5% Cream) 1 applic TOP DAILY PRN PRN Reason: Port Access Loperamide HCl (Imodium) 2 mg PO PRN PRN PRN Reason: LOOSE STOOL Last Admin: 05/28/18 06:33 Dose: 2 mg Lorazepam (Ativan) 0.5 mg PO DAILY PRN PRN Reason: Nausea / Vomiting Morphine Sulfate (Morphine (Carpuject)) 2 mg IVP Q2HR PRN PRN Reason: PAIN Last Admin: 05/27/18 19:37 Dose: 2 mg Octreotide Acetate (Sandostatin) 50 mcg SUBQ TID [facility] Last Admin: 05/28/18 13:02 Dose: 50 mcg Ondansetron HCl (Zofran Inj) 4 mg IVP Q6HR PRN PRN Reason: Nausea / Vomiting Last Admin: 05/28/18 08:02 Dose: 4 mg Ondansetron HCl (Zofran Odt) 8 mg PO DAILY PRN PRN Reason: Nausea / Vomiting Last Admin: 05/28/18 01:45 Dose: 8 mg Oxymetazoline HCl (Afrin) 2 sprays МАРИЯ BID PRN PRN Reason: Nasal bleed/nasal congestion Pantoprazole Sodium (Protonix) 40 mg IVP BIDAC [facility] Last Admin: 05/28/18 06:20 Dose: 40 mg Polyethylene Glycol (Miralax) 17 gm PO DAILY [facility] Last Admin: 05/28/18 10:32 Dose: Not Given Sodium Chloride (Normal Saline Flush 0.9%) 10 ml IVP PRN PRN PRN Reason: NEEDED PER PROVIDER ORDERS Last Admin: 05/28/18 06:20 Dose: 10 ml Sodium Chloride (Normal Saline Flush 0.9%) 10 ml IVP 0100,0900,1700 [facility] Last Admin: 05/28/18 06:21 Dose: 10 ml Temazepam (Restoril) 15 mg PO QPM PRN PRN Reason: Insomnia Hydrocodone/Acetaminophen [Hydrocodone-Acetamin 10-325 mg] 0.5 tab PO BID PRN 05/26/18 Ibuprofen 200 mg PO DAILY PRN 05/26/18 LORazepam [Lorazepam] 0.5 mg PO DAILY PRN 05/26/18 Loperamide [Imodium] 2 mg PO PRN PRN MDD 16MG 05/26/18 Ondansetron [Ondansetron Odt] 8 mg PO DAILY PRN 05/26/18 Objective - Vital Signs/Intake & Output Vital Signs: Vital Signs x48h Temp Pulse Resp BP Pulse Ox 05/28/18 13:00 36.5 C 76 18 109/57 L 99 05/28/18 08:03 36.5 C 69 14 107/53 L 98 Intake & Output: Intake & Output 05/25/18 05/26/18 05/27/18 05/28/18 23:59 23:59 23:59 23:59 Intake Total 2450 4105 1577 Output Total 650 803 4 Balance 1800 3302 1573 - Objective General Appearance: positive: No acute distress, Alert. negative: Lethargic Eyes Bilateral: positive: Normal inspection, PERRL, No lid inflammation, Conjunctivae nml ENT: positive: ENT inspection nml, Pharynx nml, No signs of dehydration. negative: Purulent nasal drainage, Pharyngeal erythema, Oral lesions Neck: positive: Nml inspection, Thyroid nml, No JVD, Trachea midline. negative: Thyromegaly, Lymphadenopathy (R), Lymphadenopathy (L), Stiff neck, Swe lling/bruising, Tracheal deviation Respiratory: positive: Chest non-tender, No respiratory distress, Breath sounds nml. negative: Wheezes, Rales, Rhonchi Cardiovascular: positive: Regular rate & rhythm, No murmur, No gallop. negative: Irregularly irregular, Extrasystoles, Tachycardia, Bradycardia, JVD present, Systolic murmur, Diastolic murmur Peripheral Pulses: 2+ Radial (R), 2+ Radial (L), 2+ Dorsalis pedis (R), 2+ Do rsalis pedis (L) Abdomen: positive: Non-tender, No organomegaly, Nml bowel sounds, No distention. negative: Tenderness, Guarding, Rebound Back: positive: Nml inspection. negative: CVA tenderness (R), CVA tenderness (L) Skin: positive: Color nml, No rash, Warm, Dry. negative: Cyanosis, Diaphoresis, Pallor Extremities: positive: Non-tender, Nml appearance. negative: Calf tenderness, Joint swelling, Susie's sign/cords Neurologic/Psychiatric: positive: Sensation nml, Mood/affect nml. negative: Weakness, Sensory loss, Facial droop, Slurred/abnml speech, Depressed mood/ affect - Lab Results Fish Bones: 05/29/18 05:15 05/29/18 05:15 Other Labs: Lab Results x24hrs 05/28/18 05/28/18 Range/Units 04:45 04:45 WBC 0.6 L* (4.8-10.8) x10^3/uL RBC 3.20 L (4.20-5.40) 10^6/uL Hgb 9.6 L (12.0-16.0) g/dL Hct 29.6 L (37.0-47.0) % MCV 92.5 (81.0-99.0) fL MCH 29.9 (27.0-31.0) pg MCHC 32.4 (32.0-36.0) g/dL RDW 18.2 H (12.0-15.0) % Plt Count 25 L* (130-450) 10^3/uL MPV 7.6 L (7.9-10.8) fL Neut # (Auto) [place] Lymph # (Auto) [place] # (Auto) [place] Eos # (Auto) [place] Baso # (Auto) [place] Absolute Nucleated RBC [place] Total Counted 50 Band Neuts % (Manual) 14 H (0 - 10) % Abnorm Lymph % (Manual) 0 % Nucleated RBC % [place] Neutrophils # (Manual) 0.3 L* (1.5-6.6) 10^3/uL Lymphocytes # (Manual) 0.2 L (1.5-3.5) 10^3/uL Monocytes # (Manual) 0.1 (0.0-1.0) 10^3/uL Eosinophils # (Manual) 0.0 (0-0.7) 10^3/uL Basophils # (Manual) 0.0 (0-0.1) 10^3/uL Platelet Estimate DECREASED (<130,000) (NORMAL) RBC Morph Micro Appear 1+ ANISOCYTOSIS (NORMAL) Sodium 139 (135-145) mmol/L Potassium 4.2 (3.5-5.0) mmol/L Chloride 114 H (101-111) mmol/L Carbon Dioxide 18 L (21-32) mmol/L Anion Gap 7.0 (6-13) BUN 18 (6-20) mg/dL Creatinine 0.7 (0.4-1.0) mg/dL Estimated GFR (MDRD) 84 L (>89) Glucose 111 H (70-100) mg/dL Calcium 8.2 L (8.5-10.3) mg/dL Total Bilirubin 2.0 H (0.2-1.0) mg/dL AST 33 (10-42) IU/L ALT 18 (10-60) IU/L Alkaline Phosphatase 91 (42-121) IU/L Total Protein 4.8 L (6.7-8.2) g/dL Albumin 2.2 L (3.2-5.5) g/dL Globulin 2.6 (2.1-4.2) g/dL Albumin/Globulin Ratio 0.8 L (1.0-2.2) ABX Reporting Has patient been on IV antibiotics over the past 48 hours?: No Sepsis Event Note (H) - Evaluation Current Stage of Sepsis: Ruled out - Sepsis Criteria Sepsis Criteria: Suspected or Documented, WBC count greater than 12,000 or less than 4000, SBP less than 90 mmHg, Hematologic: platelets < 100,000; INR > 1.5, or a PTT>60 seconds Assessment/Plan - Problem List (1) Hypotension Impression: 05/28 improved, her BP is 109/57 continue vital and tele monitor blood transfusion, lab monitor pt's BP is 94/53 today. pt has been chronic low side of BP on and off. pt is eating her breakfast, and state she has appetite today. it seems pt asymptomatic. continue vital and tele monitor continue to finish blood transfusion (2) Nausea vomiting and diarrhea resolved. no more N/V. C-diff result is negative. it seems from the side effect of recent Chemotherapy (3) Pancytopenia due to chemotherapy 05/28 still pancytopenia, not improved discussed with pt and her about pt's medical conditions, and care plan, and answer their question will contact pt's oncologist continue Zarxio chronic pancytopenia due to chemotherapy. discussed with Lacey, per Lacey's recommends, order Zarxio for neuropenia continue to finish 2 units of PRBC. closely monitor if pt has bleeding, and discussed with pt for her care plan, pt state she will report to nurse if she has any bleeding. monitor labs, monitor for bleeding, treat symptoms, IV fluids. Replace platelets if they reach less then 10. (4) Epistaxis, recurrent Conclusion/Plan: 05/28 no epistaxis, stable pt report she did not have epistaxis as far since she was admitted. Afrin spray for acute bleeding PRN, closely monitor. transfusion Plt as needed (5) Mass of colon discussed with pt and pt's for the care plan, continue full code, continue treatment and support advise pt followup her oncologist as out-pt (6) Metastasis to liver discussed with pt and pt's for the care plan, continue full code, continue treatment and support advise pt followup her oncologist as out-pt (7) Anorexia improved, pt has appetite today consult with soil scientist, followup (8) Protein-calorie malnutrition, severe nutritional consult. Regular diet. (9) Chronic anal fissure stable, pt did not have complaint today. C.diff test is negative. Continue finish blood transfusion. Qualifiers: Hypotension type: hypotension due to hypovolemia Qualified Code(s): I95.89 - Other hypotension; E86.1 - Hypovolemia
[2018-05-28] MEDS: DIPHENOX/ATROPINE 2.5/0.025 MG TABLET PO PRN (16:17)
--- NOTE | 2018-05-28 22:48 | XRAY Report ---
Reason: worsening abdominal pain, distension, obstruction? Procedure Date: 05/28/2018 Accession Number: [id number] / [id number] Procedure: XR - Abdomen 1 View X-Ray CPT Code: 53683 FULL RESULT: EXAM: ABDOMEN RADIOGRAPHY EXAM DATE: 05/28/2018 10:16 PM. CLINICAL HISTORY: Worsening abdominal pain, distension, ? obstruction. COMPARISON: ABDOMEN 1 VIEW 09/20/2015 3:13 PM, ABDOMEN/PELVIS W/ 12/11/2017 1:24 PM. TECHNIQUE: 1 view. FINDINGS: Bowel Gas Pattern: Diffuse gassy abdomen without definite obstruction or gross bowel wall thickening. There is gas in the rectum. Other: Post-cholecystectomy. IMPRESSION: Diffuse gassy abdomen without definite complete obstruction or gross bowel thickening. Given known colon cancer, there could be some degree of partial distal bowel obstruction. RADIA
--- NOTE | 2018-05-28 23:07 | PROVIDER PROGRESS NOTE ---
Print Room Worker Note - Print Room Worker Note Print Room Worker Note: I was asked to evaluate this patient by the patient's nurse as she had noticed a worsening distention to her abdomen and the patient was describing moderate increases in discomfort and abdominal pain. I did examine the patient at bedside however by the time I examined her it appears that her abdomen has soft and from the time that the nurse assessed the patient initially. She does have bowel sounds in all 4 quadrants and there is minimal to moderate tenderness g enerally on exam. I did order a abdominal x-ray which does not show any obvious signs of obstruction but she does have distention with gas and a small partial bowel obstruction cannot be ruled out. We will place the patient on clear liquids, given her current overall clinical course I do not think a CT scan is necessary nor a nasogastric tube with suction at this point however this can be reconsidered if her medical status worsens.
[2018-05-29] MEDS: SODIUM CHLORIDE FLUSH 0.9% 10 ML SYRINGE IVP SCH ×3 (00:11→18:01)
[2018-05-29] MEDS: ONDANSETRON ODT 4 MG TABLET PO PRN ×2 (00:30→09:29)
[2018-05-29] MEDS: SODIUM CHLORIDE FLUSH 0.9% 10 ML SYRINGE IVP PRN ×2 (05:13→19:59)
[2018-05-29] MEDS: OCTREOTIDE 100 MCG/ML VIAL SUBQ SCH ×2 (05:14→14:23)
[2018-05-29] MEDS: PANTOPRAZOLE 40 MG VIAL IVP SCH ×2 (05:14→18:01)
[2018-05-29] MEDS: IBUPROFEN 400 MG TABLET PO PRN (05:34)
[2018-05-29 05:46] LABS: EOSINOPHILS % (AUTO) 3.6 %; HGB - HEMOGLOBIN 10.7 g/dL (12.0-16.0); LYMPHOCYTES % (AUTO) 11.7 %; MEAN CORPUSCULAR HEMOGLOBIN 29.9 pg (27.0-31.0); MEAN CORPUSCULAR HGB CONC 32.5 g/dL (32.0-36.0); MEAN PLATELET VOLUME 8.6 fL (7.9-10.8); MONOCYTES % (AUTO) 40.5 %; NEUTROPHILS % (AUTO) 44.2 %; RED BLOOD COUNT 3.57 10^6/uL (4.20-5.40); RED CELL DISTRIBUTION WIDTH 18.9 % (12.0-15.0)
[2018-05-29 05:48] LABS: WHITE BLOOD COUNT 1.8 x10^3/uL (4.8-10.8)
[2018-05-29 05:49] LABS: PLT - PLATELET COUNT 28 10^3/uL (130-450)
[2018-05-29 05:50] LABS: ABNORMAL LYMPHS % (MANUAL) 0 %
[2018-05-29 05:55] LABS: ALBUMIN 2.2 g/dL (3.2-5.5); ALBUMIN/GLOBULIN RATIO 0.8 (1.0-2.2); CALCIUM 7.9 mg/dL (8.5-10.3); CREATININE 0.6 mg/dL (0.4-1.0); TOTAL PROTEIN 4.9 g/dL (6.7-8.2)
[2018-05-29 06:07] LABS: BAND NEUTROPHILS % (MANUAL) 13 %; EOSINOPHILS # (MANUAL) 0.1 10^3/uL (0-0.7); LYMPHOCYTES # (MANUAL) 0.5 10^3/uL (1.5-3.5); LYMPHOCYTES % (MANUAL) 26 %; METAMYELOCYTES % (MANUAL) 1 %; MONOCYTES # (MANUAL) 0.4 10^3/uL (0.0-1.0); NEUTROPHILS % (MANUAL) 34 %
[2018-05-29 06:08] LABS: DIFFERENTIAL COMMENT MANUAL DIFFERENTIAL; NEUTROPHILS # (MANUAL) 0.8 10^3/uL (1.5-6.6); PLATELET ESTIMATE, MANUAL DECREASED (<130,000) (NORMAL)
[2018-05-29] MEDS ORDERED: FILGRASTIM-SNDZ 300 MCG/0.5 ML SYRINGE SUBQ ONE (07:39)
[2018-05-29] MEDS: SIMETHICONE CHEW 80 MG TABLET PO SCH ×4 (09:27→22:34)
[2018-05-29] MEDS: ACETAMINOPHEN 325 MG TABLET PO PRN ×2 (09:51→14:45)
[2018-05-29] MEDS: POLYETHYLENE GLYCOL 3350 17 GM PACKET PO SCH (09:52)
[2018-05-29] MEDS ORDERED: PROMETHAZINE 25 MG TABLET PO PRN (12:11)
[2018-05-29] MEDS ORDERED: PROMETHAZINE INJ 25 MG in SODIUM CHLORIDE 0.9% 50 ML IV PRN (12:11)
[2018-05-29] MEDS ORDERED: PROCHLORPERAZINE 10 MG/2 ML VIAL IVP PRN (12:11)
[2018-05-29] MEDS ORDERED: ONDANSETRON ODT 4 MG TABLET PO PRN (12:18)
--- NOTE | 2018-05-29 12:19 | PROVIDER PROGRESS NOTE ---
Subjective - Prog Note Date Prog Note Date: 05/29/18 - Subjective Pt reports feeling: No change Subjective: pt report she had a bowel movement about one hour ago. she still complain some nausea and vomiting. pt denies chest pain, fever, chill, cough. pt denies nose bleeding or other bleeding. Pt and pt's decline any image study and further intervention for her. she prefer to have image study with Dr. Fneg on . she state she has a appointment with Dr. Feng on next week Saturday. Pt has bowel movement, good bowel sound, abdomen is soft. There is no tenderness, guarding, or rebound. There is two soft tumor/bumps at abdomen, one locates at middle and another locates right low quadrant. Pt state she usually had three in her abdomen. Pt states it is her chronic condition, she decline any more image study. I tried to reach Dr. Kendell Gupta for consulting by phone and page today, pt's oncologist, who gave pt chemotherapy on 05/19/18. Unfortunately it is unsuccessful. I did not receive any phone and page back from Dr. Kendell Gupta. Oncologist provider Lacey Heart [employer] saw pt and state it is out of options for pt. Current Medications - Current Medications Current Medications: Active Medications Acetaminophen (Tylenol) 650 mg PO Q4HR PRN PRN Reason: Pain 1 to 4 Last Admin: 05/29/18 14:45 Dose: 650 mg Hydrocodone Bitart/Acetaminophen ([place] 10 Mg/325 Mg) 0.5 tab PO BID PRN PRN Reason: PAIN Last Admin: 05/28/18 13:13 Dose: 0.5 tab Diphenoxylate HCl/Atropine (Lomotil) 1 tab PO QID PRN PRN Reason: Diarrhea Last Admin: 05/28/18 16:17 Dose: 1 tab Heparin Sodium (Beef Lung) () 30 - 50 unit IVP PRN PRN PRN Reason: Port Protocol (<24 hours) Last Admin: 05/29/18 05:13 Dose: 50 unit Promethazine HCl 25 mg/ Sodium (Chloride) 51 mls @ 100 mls/hr IV Q6H PRN PRN Reason: Nausea / Vomiting Ibuprofen (Motrin) 200 mg PO DAILY PRN PRN Reason: PAIN Last Admin: 05/29/18 05:34 Dose: 200 mg Lidocaine/Prilocaine (Emla 2.5% Cream) 1 applic TOP DAILY PRN PRN Reason: Port Access Loperamide HCl (Imodium) 2 mg PO PRN PRN PRN Reason: LOOSE STOOL Last Admin: 05/28/18 06:33 Dose: 2 mg Lorazepam (Ativan) 0.5 mg PO DAILY PRN PRN Reason: Nausea / Vomiting Ondansetron HCl (Zofran Inj) 4 mg IVP Q6HR PRN PRN Reason: Nausea / Vomiting Last Admin: 05/28/18 21:30 Dose: 4 mg Ondansetron HCl (Zofran Odt) 4 mg PO Q6H PRN PRN Reason: Nausea / Vomiting Last Admin: 05/29/18 14:46 Dose: 4 mg Oxymetazoline HCl (Afrin) 2 sprays МАРИЯ BID PRN PRN Reason: Nasal bleed/nasal congestion Pantoprazole Sodium (Protonix) 40 mg IVP BIDAC [facility] Last Admin: 05/29/18 05:14 Dose: 40 mg Polyethylene Glycol (Miralax) 17 gm PO DAILY [facility] Last Admin: 05/29/18 09:52 Dose: Not Given Prochlorperazine Edisylate (Compazine Inj) 10 mg IVP Q4HR PRN PRN Reason: Nausea / Vomiting Promethazine HCl (Phenergan) 25 mg PO Q6HR PRN PRN Reason: Nausea / Vomiting Simethicone (Mylicon) 80 mg PO 0900,1300,1800,2100 [facility] Last Admin: 05/29/18 14:21 Dose: 80 mg Sodium Chloride (Normal Saline Flush 0.9%) 10 ml IVP PRN PRN PRN Reason: NEEDED PER PROVIDER ORDERS Last Admin: 05/29/18 05:13 Dose: 10 ml Sodium Chloride (Normal Saline Flush 0.9%) 10 ml IVP 0100,0900,1700 [facility] Last Admin: 05/29/18 05:14 Dose: 10 ml Temazepam (Restoril) 15 mg PO QPM PRN PRN Reason: Insomnia Hydrocodone/Acetaminophen [Hydrocodone-Acetamin 10-325 mg] 0.5 tab PO BID PRN 05/26/18 Ibuprofen 200 mg PO DAILY PRN 05/26/18 LORazepam [Lorazepam] 0.5 mg PO DAILY PRN 05/26/18 Loperamide [Imodium] 2 mg PO PRN PRN MDD 16MG 05/26/18 Ondansetron [Ondansetron Odt] 8 mg PO DAILY PRN 05/26/18 Objective - Vital Signs/Intake & Output Reviewed Vital Signs: Yes Vital Signs: Vital Signs x48h Temp Pulse Resp BP Pulse Ox 05/29/18 07:52 36.7 C 94 16 106/64 97 05/29/18 05:00 36.7 C 82 16 116/64 97 Intake & Output: Intake & Output 05/26/18 05/27/18 05/28/18 05/29/18 23:59 23:59 23:59 23:59 Intake Total 2450 4105 1678 50 Output Total 650 803 79 Balance 1800 3302 1599 50 - Objective General Appearance: positive: No acute distress, Alert. negative: Lethargic Eyes Bilateral: positive: Normal inspection, PERRL, Conjunctivae nml ENT: positive: ENT inspection nml, Pharynx nml, No signs of dehydration. negative: Purulent nasal drainage, Pharyngeal erythema, Oral lesions Neck: positive: Nml inspection, Thyroid nml, No JVD, Trachea midline. negative: Thyromegaly, Lymphadenopathy (R), Lymphadenopathy (L), Stiff neck, Swelling/bruising, Tracheal deviation Respiratory: positive: Chest non-tender, No respiratory distress, Breath sounds nml. negative: Wheezes, Rales, Rhonchi Cardiovascular: positive: Regular rate & rhythm, No murmur, No gallop. negative: Irregularly irregular, Extrasystoles, Tachycardia, Bradycardia, JVD present, Systolic murmur, Diastolic murmur Peripheral Pulses: 2+ Radial (R), 2+ Radial (L), 2+ Dorsalis pedis (R), 2+ Dorsalis pedis (L) Abdomen: positive: Non-tender, Nml bowel sounds. negative: Tenderness, Guarding, Rebound Back: positive: Nml inspection. negative: CVA tenderness (R), CVA tenderness (L) Skin: positive: Color nml, No rash, Warm, Dry. negative: Cyanosis, Diaphoresis, Pallor Extremities: positive: Non-tender, Full ROM, Nml appearance. negative: Calf tenderness, Joint swelling, Susie's sign/cords Neurologic/Psychiatric: positive: Oriented x3, Sensation nml, Mood/affect nml. negative: Weakness, Sensory loss, Facial droop, Slurred/abnml speech, Depressed mood/affect - Lab Results Fish Bones: 05/29/18 05:15 05/29/18 05:15 Other Labs: Lab Results x24hrs 05/29/18 05/29/18 05/26/18 Range/Units 05:15 05:15 15:25 WBC 1.8 L* (4.8-10.8) x10^3/uL RBC 3.57 L (4.20-5.40) 10^6/uL Hgb 10.7 L (12.0-16.0) g/dL Hct 32.8 L (37.0-47.0) % MCV 92.0 (81.0-99.0) fL MCH 29.9 (27.0-31.0) pg MCHC 32.5 (32.0-36.0) g/dL RDW 18.9 H (12.0-15.0) % Plt Count 28 L* (130-450) 10^3/uL MPV 8.6 (7.9-10.8) fL Neut # (Auto) Not Reportable Lymph # (Auto) Not Reportable [place] # (Auto) Not Reportable Eos # (Auto) Not Reportable Baso # (Auto) Not Reportable Absolute Nucleated RBC Not Reportable Total Counted 100 Band Neuts % (Manual) 13 H (0 - 10) % Abnorm Lymph % (Manual) 0 % Metamyelocytes % 1 H ( - 0) % Nucleated RBC % Not Reportable Neutrophils # (Manual) 0.8 L (1.5-6.6) 10^3/uL Lymphocytes # (Manual) 0.5 L (1.5-3.5) 10^3/uL Monocytes # (Manual) 0.4 (0.0-1.0) 10^3/uL Eosinophils # (Manual) 0.1 (0-0.7) 10^3/uL Basophils # (Manual) 0.0 (0-0.1) 10^3/uL Differential Comment MANUAL DIFFERENTIAL Platelet Estimate DECREASED (<130,000) (NORMAL) RBC Morph Micro Appear 1+ OVALOCYTES (NORMAL) Sodium 137 (135-145) mmol/L Potassium 3.7 (3.5-5.0) mmol/L Chloride 111 (101-111) mmol/L Carbon Dioxide 21 (21-32) mmol/L Anion Gap 5.0 L (6-13) BUN 14 (6-20) mg/dL Creatinine 0.6 (0.4-1.0) mg/dL Estimated GFR (MDRD) 100 (>89) Glucose 91 (70-100) mg/dL Calcium 7.9 L (8.5-10.3) mg/dL Total Bilirubin 2.0 H (0.2-1.0) mg/dL AST 22 (10-42) IU/L ALT 16 (10-60) IU/L Alkaline Phosphatase 99 (42-121) IU/L Total Protein 4.9 L (6.7-8.2) g/dL Albumin 2.2 L (3.2-5.5) g/dL Globulin 2.7 (2.1-4.2) g/dL Albumin/Globulin Ratio 0.8 L (1.0-2.2) Blood Type Cancelled Antibody Screen Cancelled Crossmatch IS Only See Detail 05/26/18 Range/Units 15:25 WBC (4.8-10.8) x10^3/uL RBC (4.20-5.40) 10^6/uL Hgb (12.0-16.0) g/dL Hct (37.0-47.0) % MCV (81.0-99.0) fL MCH (27.0-31.0) pg MCHC (32.0-36.0) g/dL RDW (12.0-15.0) % Plt Count (130-450) 10^3/uL MPV (7.9-10.8) fL Neut # (Auto) Lymph # (Auto) [place] # (Auto) Eos # (Auto) Baso # (Auto) Absolute Nucleated RBC Total Counted Band Neuts % (Manual) (0 - 10) % Abnorm Lymph % (Manual) % Metamyelocytes % ( - 0) % Nucleated RBC % Neutrophils # (Manual) (1.5-6.6) 10^3/uL Lymphocytes # (Manual) (1.5-3.5) 10^3/uL Monocytes # (Manual) (0.0-1.0) 10^3/uL Eosinophils # (Manual) (0-0.7) 10^3/uL Basophils # (Manual) (0-0.1) 10^3/uL Differential Comment Platelet Estimate (NORMAL) RBC Morph Micro Appear (NORMAL) Sodium (135-145) mmol/L Potassium (3.5-5.0) mmol/L Chloride (101-111) mmol/L Carbon Dioxide (21-32) mmol/L Anion Gap (6-13) BUN (6-20) mg/dL Creatinine (0.4-1.0) mg/dL Estimated GFR (MDRD) (>89) Glucose (70-100) mg/dL Calcium (8.5-10.3) mg/dL Total Bilirubin (0.2-1.0) mg/dL AST (10-42) IU/L ALT (10-60) IU/L Alkaline Phosphatase (42-121) IU/L Total Protein (6.7-8.2) g/dL Albumin (3.2-5.5) g/dL Globulin (2.1-4.2) g/dL Albumin/Globulin Ratio (1.0-2.2) Blood Type O POSITIVE Antibody Screen NEGATIVE Crossmatch IS Only See Detail ABX Reporting Has patient been on IV antibiotics over the past 48 hours?: No Sepsis Event Note (H) - Evaluation Current Stage of Sepsis: Ruled out - Sepsis Criteria Sepsis Criteria: Suspected or Documented, WBC count greater than 12,000 or less than 4000, SBP less than 90 mmHg, Hematologic: platelets < 100,000; INR > 1.5, or a PTT>60 seconds Assessment/Plan - Problem List (1) Hypotension Impression: 05/29 stable. continue vital and tele monitor, and lab monitor 05/28 improved, her BP is 109/57 continue vital and tele monitor pt's BP is 94/53 today. pt has been chronic low side of BP on and off. pt is eating her breakfast, and state she has appetite today. it seems pt asymptomatic. continue vital and tele monitor continue to finish blood transfusion (2) Nausea vomiting and diarrhea 05/29 pt still complain N/V. Pt just had chemotherapy on 05/19/18, it could be combination of chemotherapy side effect, active tumor on colon, liver and pe lvis. pt and her decline to have more image study. add Phenergan, compazine PRN for pt pt complain Morphine make her nausea, d/c morphine. and D/C sandostatin because of its side effect of N/V resolved. no more N/V. C-diff result is negative. it seems from the side effect of recent Chemotherapy (3) Pancytopenia due to chemotherapy 05/29 improved. pt denies nose bleed or other bleed WBC increase to 1.8 from 0.6. HGB increase to 10.7 from 9.6, Plt increase to 28 from 25. continue order Zarxio continue lab and vital monitor 05/28 still pancytopenia, not improved discussed with pt and her about pt's medical conditions, and care plan, and answer their question will contact pt's oncologist continue Zarxio chronic pancytopenia due to chemotherapy. discussed with Lacey, per Lacey's recommends, order Zarxio for neuropenia continue to finish 2 units of PRBC. closely monitor if pt has bleeding, and discussed with pt for her care plan, pt state she will report to nurse if she has any bleeding. monitor labs, monitor for bleeding, treat symptoms, IV fluids. Replace platelets if they reach less then 10. (4) Epistaxis, recurrent Conclusion/Plan: 05/29 no epistaxis 05/28 no epistaxis, stable pt report she did not have epistaxis as far since she was admitted. Afrin spray for acute bleeding PRN, closely monitor. transfusion Plt as needed (5) Mass of colon 05/29 pt refuse to have image study for further intervention discussed with pt and pt's for the care plan, continue full code, continue treatment and support advise pt followup her oncologist as out-pt (6) Metastasis to liver discussed with pt and pt's for the care plan, continue full code, continue treatment and support advise pt followup her oncologist as out-pt (7) Anorexia 05/29 pt is still poor, consult with busboy, followup improved, pt has appetite today consult with busboy, followup (8) Protein-calorie malnutrition, severe nutritional consult. Regular diet. (9) Chronic anal fissure stable, pt did not have complaint today. C.diff test is negative. Continue finish blood transfusion. Qualifiers: Hypotension type: hypotension due to hypovolemia Qualified Code(s): I95.89 - Other hypotension; E86.1 - Hypovolemia
--- NOTE | 2018-05-29 14:34 | ADVANCE CARE PLANNING NOTE ---
Advance Care Planning - Date/Time Date: 05/29/18 Time: 09:00 - Purpose of encounter Text: advance care for pt - Parties in attendance Parties in attendance: pt, pt's , and me - Decisional capacity Decisional capacity of: pt is alert and oriented, and her help make decision - Subjective/Patient's story Subjective/Patient's story: pt report she had a bowel movement about one hour ago. she still complain some nausea and vomiting. pt denies chest pain, fever, chill, cough. pt denies nose bleeding or other bleeding. Pt and pt's decline any image study and further intervention for her. she prefer to have image study with Dr. Feng on . she state she has a appointment with Dr. Feng on next week Saturday. Pt has bowel movement, good bowel sound, abdomen is soft. There is no tenderness, guarding, or rebound. There is two soft tumor/bumps at abdomen, one locates at middle and another locates right low quadrant. Pt state she usually had three in her abdomen. Pt states it is her chronic condition, she decline any more image study. I tried to reach Dr. Kendell Gupta for consulting by phone and page today, pt's oncologist, who gave pt chemotherapy on 05/19/18. Unfortunately it is unsuccessful. I did not receive any phone and page back from Dr. Kendell Gupta. Oncologist provider Lacey Heart NP saw pt and state it is out of options for pt - Objective/Medical story Objective/Medical Story: pt has hx of stage IV colon cancer to the liver, peritoneum, pelvis, progress in 03/2017. embolization of the right liver and failure surgical attempt due to disease progression in the liver, pancytopenia due to chemotherapy, malnutrition, anorexia, nausea/vomiting and diarrhea. - Goals of Care Goals of care determinations: pt still denies her serous illness and state she did not have cancer only had hernia in her stomach. pt and her still continue to request full code, do not consider any palliative and hospice care now. - Plan Plan: continue full code, not consider palliative and hospice care now - Code Status Code Status: Attempt Resuscitation - Time Spent on Advance Care Planning Time spent on advance care plannin
[2018-05-29] MEDS: ONDANSETRON 4 MG/2 ML VIAL IVP PRN (18:01)
[2018-05-29] MEDS ORDERED: SODIUM CHLORIDE 0.9% 1,000 ML IV SCH (19:00)
[2018-05-30] MEDS: SODIUM CHLORIDE FLUSH 0.9% 10 ML SYRINGE IVP SCH ×2 (02:10→08:32)
[2018-05-30] MEDS: PANTOPRAZOLE 40 MG VIAL IVP SCH (06:36)
[2018-05-30] MEDS: SODIUM CHLORIDE FLUSH 0.9% 10 ML SYRINGE IVP PRN ×2 (06:37→16:38)
[2018-05-30 07:03] LABS: BASOPHILS % (AUTO) 0.1 %; EOSINOPHILS % (AUTO) 0.3 %; LYMPHOCYTES % (AUTO) 2.3 %; MEAN CORPUSCULAR HEMOGLOBIN 29.7 pg (27.0-31.0); MEAN CORPUSCULAR HGB CONC 31.9 g/dL (32.0-36.0); MEAN PLATELET VOLUME 8.1 fL (7.9-10.8); MONOCYTES % (AUTO) 17.5 %; NEUTROPHILS % (AUTO) 79.8 %; RED BLOOD COUNT 2.35 10^6/uL (4.20-5.40); RED CELL DISTRIBUTION WIDTH 19.3 % (12.0-15.0); WHITE BLOOD COUNT 3.7 x10^3/uL (4.8-10.8)
[2018-05-30 07:07] LABS: ALBUMIN/GLOBULIN RATIO 0.8 (1.0-2.2); BILIRUBIN,TOTAL 1.7 mg/dL (0.2-1.0); CALCIUM 7.5 mg/dL (8.5-10.3); CREATININE 0.8 mg/dL (0.4-1.0); TOTAL PROTEIN 4.4 g/dL (6.7-8.2)
[2018-05-30 07:16] LABS: PLT - PLATELET COUNT 22 10^3/uL (130-450)
[2018-05-30 07:17] LABS: ABNORMAL LYMPHS % (MANUAL) 0 %
[2018-05-30] MEDS ORDERED: FILGRASTIM-SNDZ 300 MCG/0.5 ML SYRINGE SUBQ ONE (08:15)
[2018-05-30] MEDS: DIPHENOX/ATROPINE 2.5/0.025 MG TABLET PO PRN (08:31)
[2018-05-30] MEDS: SIMETHICONE CHEW 80 MG TABLET PO SCH ×2 (08:32→14:12)
[2018-05-30] MEDS: POLYETHYLENE GLYCOL 3350 17 GM PACKET PO SCH (08:32)
[2018-05-30 09:07] LABS: BAND NEUTROPHILS % (MANUAL) 22 %; LYMPHOCYTES # (MANUAL) 0.1 10^3/uL (1.5-3.5); LYMPHOCYTES % (MANUAL) 4 %; METAMYELOCYTES % (MANUAL) 9 %; MONOCYTES # (MANUAL) 0.2 10^3/uL (0.0-1.0); MYELOCYTES % (MANUAL) 3 %; NEUTROPHILS # (MANUAL) 2.8 10^3/uL (1.5-6.6); NEUTROPHILS % (MANUAL) 54 %; PROMYELOCYTES % (MANUAL) 1 %
[2018-05-30 09:10] LABS: PLATELET ESTIMATE, MANUAL DECREASED (<130,000) (NORMAL)
[2018-05-30 10:05] LABS: MEAN RETIC VALUE 141.1; RED BLOOD COUNT 3.36 10^6/uL (4.20-5.40)
[2018-05-30 10:24] LABS: % IRON SATURATION 12 % (20-50); IRON 12 ug/dL (28-170); TOTAL IRON BINDING CAPACITY 101 ug/dL (250-450); TRANSFERRIN 72 mg/dL (192-382)
[2018-05-30 10:42] LABS: FERRITIN 399.8 ng/mL (11.0-306.8)
[2018-05-30] MEDS ORDERED: FERRIC GLUCONATE 62.5 MG/5 ML VIAL IVP ONE (10:48)
[2018-05-30 11:14] LABS: DIFFERENTIAL COMMENT MANUAL DIFFERENTIAL
[2018-05-30] MEDS ORDERED: FERRIC GLUCONATE 125 MG in SODIUM CHLORIDE 0.9% 100ML 100 ML IV ONE (12:00)
[2018-05-30 15:06] LABS: BASOPHILS % (AUTO) 0.3 %; EOSINOPHILS % (AUTO) 0.1 %; HGB - HEMOGLOBIN 11.6 g/dL (12.0-16.0); LYMPHOCYTES % (AUTO) 1.8 %; MEAN CORPUSCULAR HEMOGLOBIN 30.7 pg (27.0-31.0); MEAN CORPUSCULAR HGB CONC 34.4 g/dL (32.0-36.0); MEAN CORPUSCULAR VOLUME 89.2 fL (81.0-99.0); MEAN PLATELET VOLUME 8.1 fL (7.9-10.8); MONOCYTES % (AUTO) 10.9 %; NEUTROPHILS % (AUTO) 86.9 %; RED BLOOD COUNT 3.78 10^6/uL (4.20-5.40); RED CELL DISTRIBUTION WIDTH 17.9 % (12.0-15.0); WHITE BLOOD COUNT 10.6 x10^3/uL (4.8-10.8)
[2018-05-30 15:22] LABS: PLT - PLATELET COUNT 35 10^3/uL (130-450)
[2018-05-30 15:42] VITALS: BP 114/55
--- NOTE | 2018-05-30 15:53 | Discharge Plan ---
Discharge Plan Disposition: Home, Self Care Condition: Poor Prescriptions: Diphenoxylate/Atropine [Lomotil] 1 each PO QID PRN #15 tablet PRN Reason: Diarrhea Ferrous Sulfate 325 mg PO DAILY #15 tablet Diet: Soft Activity Restrictions: Activity as Tolerated Instruction Topics: Atropine Diphenoxylate tablets Additional Instructions or Follow Up instructions: You may followup your PCP in one week, followup your oncologist in [place] as your schedule in the next Saturday. Should your symptoms return or worsen, you may present ER, call 911 or call your PCP or your oncologist for help No Smoking: If you smoke, Please STOP! Call for help. Follow-up with: Tisha Carrero MD [Primary Care Provider] -
--- NOTE | 2018-05-30 15:58 | DISCHARGE SUMMARY ---
Discharge Summary Discharge Date: 05/30/18 Discharging Provider: PATE Primary Care Provider: Tisha Butcher Condition at Discharge: Poor Discharge Disposition: Home, Self Care Discharge Facility Name: home - DIAGNOSES Admission Diagnoses: (1) Hypotension (2) Nausea vomiting and diarrhea (3) Pancytopenia due to chemotherapy (4) Epistaxis, recurrent (5) Mass of colon (6) Metastasis to liver (7) Anorexia (8) Protein-calorie malnutrition, severe (9) Chronic anal fissure Discharge Diagnoses with Status of Each Condition: (1) Hypotension resolved (2) Nausea vomiting and diarrhea N/V is controlled. Loose stool, pt state it is better than before. Lomotil is prescribed to pt, followup oncologist continue management C.Diff test is negative. (3) Pancytopenia due to chemotherapy WBC 10.5. HGB 11.6. PLT 35, increased and stable. pt has no nose bleed, no GI bleed, and no other bleed. I called Dr. Kendell Gupta, pt's oncologist, Dr. Gupta recommend pt can be d/c if no acute bleed. pt has no acute bleed. (4) Epistaxis, recurrent resolved (5) Mass of colon follow up her oncologist to continue management on next week Saturday. Pt decline image study at this time in the hospital (6) Metastasis to liver follow up her oncologist to continue management on next week Saturday. Pt decline image study at this time in the hospital (7) Anorexia improved. follow up her oncologist to continue management (8) Protein-calorie malnutrition, severe improved. follow up her oncologist to continue management (9) Chronic anal fissure stable,follow up her oncologist to continue management called to Dr. Kendell Gupta, pt's oncologist, was made. Dr. Gupta recommended pt can be d/c if no acute bleed. Pt has no acute bleed pt request to be d/c to home today. pt think she will be better at home. she has appointment on next Saturday with Dr. Rascon at [facility], she will followup. - [facility] History of Present Illness: refer from Ms. Singh's HPI on 05/26/18 for pt as the following: Darcy Mccall is a 62-year old female with a past medical history of hypertension, colorectal cancer since 09/2015, diverting colostomy for obstruction, ileostomy take down in 03/2016, embolization of right hepatic lobe, failed liver resection due to progression of disease, and iron deficiency anemia. The patient presented to the ED with a primary complaint of nausea, vomiting and diarrhea that started last May 23. She states that she has been getting bloody noses, has been having blurred vision and is currently being seen by our [facility] [place] with her last appointment on 05/19/[address] Gupta. Today the triggering event that she called EMS for was that she could no longer bear weight on her legs due to profound weakness. Labs show pancytopenia with a WBC count of 0.9 and an ANC of 0.5. Her H/H was very low at 7/21.3 and a low platelet count of 25. On my exam she is conversational and set on going home by "noon tomorrow". She complains of loss of appetite, chills, nose bleeds, weakness, dizziness, shortness of breath with ambulation, sleeping all of the time, an inability to ambulate, and incontinence. She denies chest pain, chest pressure, rashes, hallucinations, confusion, falls, syncope, a productive cough, fevers, or night sweats. She states that she was previously a DNR, but after speaking with her , they decided that a FULL code is their wish at this time. Her Kristine was not present for this exam, but a family friend (female) named Uma giraldo, who agreed with a FULL code status as she was present for the conversation between the patient and her . She will be admitted for PRBCs and evaluation of her symptoms. - HOSPITAL COURSE Hospital Course: patient was admitted to the ED with a primary complaint of nausea, vomiting and diarrhea. pt was found to have panocytopenia. pt had chemotherapy on 05/19/18. After treatment, her hypotension was resolved. pt's N/V was controlled. Her diarrhea is better and has a loose stool, her WBC became 10.5. HGB 11.6. PLT 35 which was increased and stable. pt has no nose bleed, no GI bleed, and no other bleed. I called Dr. Kendell Gupta, pt's oncologist, Dr. Gupta recommend pt can be d/c if no acute bleed. pt has no acute bleed. pt request to be d/c today. she has appointment to followup her oncologist in [place] on next Saturday. - ALLERGIES Allergies/Adverse Reactions: Allergies Allergy/AdvReac Type Severity Reaction Status Date / Time No Known Drug Allergies Allergy Verified 05/26/18 12:15 - MEDICATIONS Home Medications: Ambulatory Orders Medication Instructions Recorded Confirmed Lidocaine/Prilocain 2.5% Cream 1 inch TOP DAILY PRN #1 tube 11/11/17 05/26/18 [Emla 2.5% Cream] Potassium Chloride [K-Dur] 20 meq PO 0800 #30 tablet 11/11/17 05/26/18 Hydrocodone/Acetaminophen 0.5 tab PO BID PRN 05/26/18 05/26/18 [Hydrocodone-Acetamin 10-325 mg] Ibuprofen 200 mg PO DAILY PRN 05/26/18 05/26/18 LORazepam [Lorazepam] 0.5 mg PO DAILY PRN 05/26/18 05/26/18 Loperamide [Imodium] 2 mg PO PRN PRN MDD 16MG 05/26/18 05/26/18 Ondansetron [Ondansetron Odt] 8 mg PO DAILY PRN 05/26/18 05/26/18 Diphenoxylate/Atropine [Lomotil] 1 each PO QID PRN #15 tablet 05/30/18 Ferrous Sulfate 325 mg PO DAILY #15 tablet 05/30/18 - PHYSICAL EXAM AT DISCHARGE General Appearance: positive: No acute distress, Alert. negative: Lethargic Eyes Bilateral: positive: Normal inspection, PERRL, No lid inflammation, Conjunctivae nml ENT: positive: ENT inspection nml, Pharynx nml, No signs of dehydration. negative: Purulent nasal drainage, Pharyngeal erythema, Oral lesions Neck: positive: Nml inspection, Thyroid nml, No JVD, Trachea midline. negative: Thyromegaly, Lymphadenopathy (R), Lymphadenopathy (L), Stiff neck, Swelling/bruising, Tracheal deviation Respiratory: positive: Chest non-tender, No respiratory distress, Breath sounds nml. negative: Wheezes, Rales, Rhonchi Cardiovascular: positive: Regular rate & rhythm, No murmur, No gallop. negative: Irregularly irregular, Extrasystoles, Tachycardia, Bradycardia, JVD present, Systolic murmur, Diastolic murmur Peripheral Pulses: positive: 2+ Abdomen: positive: Non-tender, No organomegaly, Nml bowel sounds, No distention. negative: Tenderness, Guarding, Rebound Back: positive: Nml inspection. negative: CVA tenderness (R), CVA tenderness (L) Skin: positive: Color nml, No rash, Warm, Dry. negative: Cyanosis, Diaphoresis, Pallor Extremities: positive: Non-tender, Full ROM, Nml appearance. negative: Calf tenderness, Joint swelling, Susie's sign/cords Neurologic/Psychiatric: positive: Oriented x3, Sensation nml, Mood/affect nml. negative: Weakness, Sensory loss, Facial droop, Slurred/abnml speech, Depressed mood/affect - LABS Result Diagrams: 05/30/18 14:55 05/30/18 06:35 - SEPSIS Current Stage of Sepsis: Ruled out Sepsis Criteria: Suspected or Documented, WBC count greater than 12,000 or less than 4000, SBP less than 90 mmHg, Hematologic: platelets < 100,000; INR > 1.5, or a PTT>60 seconds - FOLLOW UP Follow Up: You may followup your PCP in one week, followup your oncologist in [place] as your schedule in the next Saturday. Should your symptoms return or worsen, you may present ER, call 911 or call your PCP or your oncologist for help - TIME SPENT Time Spent in Discharge (Minutes): 60
[2018-05-30 16:46] LABS: DIFFERENTIAL COMMENT MANUAL DIFFERENTIAL; PLATELET ESTIMATE, MANUAL NORMAL (130-450,000) (NORMAL); PLATELET MORPHOLOGY NORMAL APPEARANCE (NORMAL)
[2018-05-31] MEDS ORDERED: FERROUS SULFATE 325 MG TABLET PO SCH (08:00)
== END 2018-05-30 15:05 | disposition home or self-care (01) | DRG 391 ==
LOC: ED 10:31 → MS2 17:08
PROVIDERS: ADMIT Nurse Practitioner; ATTEND Nurse Practitioner Gerontology
PROC: 30233N1 Transfusion of Nonautologous Red Blood Cells into Peripheral Vein, Percutaneous Approach (ICD-10-PCS; principal; 2018-05-26)
DX: R11.2 Nausea with vomiting, unspecified (principal); D61.810 Antineoplastic chemotherapy induced pancytopenia; K92.1 Melena; E86.0 Dehydration; E43 Unspecified severe protein-calorie malnutrition; C18.9 Malignant neoplasm of colon, unspecified; C78.7 Secondary malignant neoplasm of liver and intrahepatic bile duct; Z68.1 Body mass index [BMI] 19.9 or less, adult; T45.1X5A Adverse effect of antineoplastic and immunosuppressive drugs, initial encounter; I95.9 Hypotension, unspecified; Z92.21 Personal history of antineoplastic chemotherapy; R19.7 Diarrhea, unspecified; R04.0 Epistaxis; R63.0 Anorexia; K60.1 Chronic anal fissure; Z93.3 Colostomy status
CPT/HCPCS: 36415; 74018; 80053; 82272; 82607; 82728; 83540; 83615; 83690; 83735; 84466; 85025; 85044; 86850; 86900; 86901; 86920; 87045; 87046; 87493; 96365; 96366; 96368; 96375; 99284